=== PATIENT | female | born 1965 | race Caucasian/White ===

== ENCOUNTER 2018-05-25 08:44 | Emergency (ER) | payer BC, SELFPAY ==
--- NOTE | 2018-05-25 10:00 | RAD ---
LEFT SHOULDER TWO VIEWS: 05/25/2018 HISTORY: Fall. Trauma. Pain. COMPARISON: None. FINDINGS: There is mild joint space narrowing and inferior osteophyte formation of the left AC joint. No widen ing of the AC or CC interspace. No displaced fracture or dislocation. There is atherosclerotic calc ification of the aortic arch. IMPRESSION: No acute findings. POS: [facility]
--- NOTE | 2018-05-25 10:00 | RAD ---
LEFT ELBOW THREE VIEWS: History: Fall with injury to left elbow. FINDINGS: There is a transverse mildly displaced and angulated fracture involving the proximal ulna just distal to the elbow joint. There is dislocation of the radial head in relation to the capitellum. Radial he ad exhibits abnormal posterior dislocation. The ulna humeral joint appears normally maintained. 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 IMPRESSION: Mildly angulated and displaced fracture proximal ulna. Dislocation of the radial head. POS: [facility]
[2018-05-25] MEDS ORDERED: Dexamethasone 10 MG/ML VIAL ONE (10:14)
[2018-05-25] MEDS ORDERED: Ibuprofen 800 MG TAB ONE (10:14)
[2018-05-25] MEDS ORDERED: Lidocaine 1% 20 ML MDV ONE (10:17)
[2018-05-25] MEDS ORDERED: Bupivacaine PF 0.5% 30 ML VIAL ONE (10:17)
--- NOTE | 2018-05-25 11:20 | RAD ---
LEFT ELBOW TWO VIEWS: History: Fall. Pain. Dislocation. Status post reduction. FINDINGS: Views of the left elbow redemonstrate a proximal ulnar fracture. There is still evidence of subluxati on. The radial head does not appropriately articulate with the distal humerus. IMPRESSION: Persistent subluxation. POS: [facility]
--- NOTE | 2018-05-25 12:52 | RAD ---
LEFT ELBOW TWO VIEWS: 05/25/2018 HISTORY: Post reduction. COMPARISON: 05/25/2018 at 1037 hours. FINDINGS: Again noted is a fracture involving the proximal ulna with dorsal angulation of fracture fragments. The radial head is again dislocated laterally and dorsally. Alignment of the fracture of the ulna as well as dislocation of the radial head is unchanged compared to prior study. Subcutaneous soft tiss ue swelling is seen about the elbow, predominantly laterally and dorsally. IMPRESSION: Stable alignment of the angulated fracture, proximal left ulna, with stable positioning of the disloc ated radius. POS: [facility]
--- NOTE | 2018-05-25 13:08 | RAD ---
Two views left elbow: DATE: 05/15/18. HISTORY: Post reduction dislocation. COMPARISON: 05/25/18 at 1103 hours. FINDINGS: There has been interval reduction of previously noted dislocation of the dislocated radial head. Fra cture involving the proximal ulna is again seen. There has been improvement in the dorsal angulation of fracture fragments. Distal fracture fragment slightly displaced laterally by 5 mm. Subcutaneous soft tissue dorsal aspect of the elbow is again noted. There is a probable small joint effusion pre sent. IMPRESSION: 1. Interval reduction of previously noted dislocation of the radial head. 2. Improvement in angulation of the fracture of the proximal ulna with distal fracture slightly disp laced laterally. POS: [facility]
== END 2018-05-25 12:48 | disposition home or self-care (01) ==
LOC: MADERS 08:44
DX: S52.002A Unspecified fracture of upper end of left ulna, initial encounter for closed fracture (principal); S53.005A Unspecified dislocation of left radial head, initial encounter; I10 Essential (primary) hypertension; E03.9 Hypothyroidism, unspecified; W19.XXXA Unspecified fall, initial encounter
CPT/HCPCS: 20605; 24600; J1100; J2001; S0020